=== PATIENT | female | born 1985 | race Two or more races ===

== ENCOUNTER 2025-01-25 17:39 | Emergency (ER) | payer SELFPAY ==
--- NOTE | 2025-01-25 19:35 | RAD REPORT ---
EXAM: CT Head Brain Wo Cont HISTORY: HEADACHE COMPARISON: None TECHNIQUE: Multiple contiguous axial images were obtained for a CT of the brain without contrast. Sag ittal and coronal reformats were performed. One or more of the following dose reduction techniques were used: Automated exposure control, adjus tment of the mA and kV according to patient size, and iterative reconstruction. Unless otherwise specified, incidental findings do not require dedicated imaging follow-up. FINDINGS: No evidence of hydrocephalus, intracranial hemorrhage, or extra-axial fluid collection. The brain is normal in morphology. The calvarium is intact. The visualized paranasal sinuses and mastoid air cells are essentially clear . IMPRESSION: No evidence of acute intracranial abnormality.
--- NOTE | 2025-01-25 20:09 | ER ---
Nurse's Notes [facility] Name: Andree Gonzales Age: 39 yrs Sex: Female : 1985 Arrival Date: 01/25/2025 Time: 17:39 Bed 6 Private MD: Diagnosis: Viral infection, unspecified;Headache Presentation: 01/25 18:01 Chief complaint: Patient states: HEADACHE, X 1 WEEK. 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 db SEEN BY PCP STATES TOOK AZYTHROMYCIN, AMOX/CLAUV, DIDN'T HELP. TOOK STEROID SHOT. STATES STILL HAS HEAD "PRESSURE". STATES PCP RECOMMENDED TO COME TO ED DUE TO SYMPTOMS NOT GETTING BETTER. Coronavirus screen: Client denies travel out of the [place] in the last 14 days. At this time, the client does not indicate any symptoms associated with coronavirus-19. Ebola Screen: Patient negative for fever greater than or equal to 101.5 degrees Fahrenheit, and additional compatible Ebola Virus Disease symptoms Patient denies exposure to infectious person. Patient denies travel to an Ebola-affected area in the 21 days before illness onset. No symptoms or risks identified at this time. Initial Sepsis Screen: Does the patient meet any 2 criteria? No. Patient's initial sepsis screen is negative. Does the patient have a suspected source of infection? No. Patient's initial sepsis screen is negative. Risk Assessment: Do you want to hurt yourself or someone else? Patient reports no desire to harm self or others. Onset of symptoms was January 19, 2025. 18:01 Method Of Arrival: Ambulatory db 18:08 Acuity: KEEGAN 3 db Triage Assessment: 18:01 Headache History: The patient has had previous headaches and this one is different than db previous episodes. General: Appears in no apparent distress. uncomfortable, Behavior is cooperative, crying. Pain: Complains of pain in head Pain. Neuro: Level of Consciousness is awake, alert, obeys commands, Oriented to person, place, time, situation. Respiratory: Airway is patent Respiratory effort is even, unlabored, Respiratory pattern is regular, symmetrical. 18:08 Pain: Pain began 7 DAYS. db 19:32 Pain: Also complains of nausea. km10 Historical: - Allergies: 18:08 Ceclor; db - PMHx: 18:08 SVT; Asthma; db - PSHx: 18:08 SINUS SURGERY; db - Immunization history:: Adult Immunizations unknown. - Infectious Disease History:: Denies. - Social history:: Smoking status: Patient denies any tobacco usage or history of. Screenin:28 [facility] ED Fall Risk Assessment (Adult) History of falling in the last 3 months, km10 including since admission No falls in past 3 months (0 pts) Confusion or Disorientation No (0 pts) Intoxicated or Sedated No (0 pts) Impaired Gait No (0 pts) Mobility Assist Device Used No (0 pt) Altered Elimination No (0 pt) Score/Fall Risk Level 0 - 2 = Low Risk. Abuse screen: Denies threats or abuse. Denies injuries from another. Nutritional screening: No deficits noted. Tuberculosis screening: No symptoms or risk factors identified. Assessment: 19:29 General: Appears in no apparent distress. Pain: Complains of pain in head Pain km10 currently is 6 out of 10 on a pain scale. Quality of pain is described as pressure, recent dx sinus infection and URI by pcp and seen at urgent care earlier today, got steroid and abx injection at . Aggravated by bright light. Neuro: Level of Consciousness is awake, alert, obeys commands, Oriented to person, place, time, situation. Cardiovascular: Capillary refill < 3 seconds. Respiratory: Airway is patent Respiratory effort is even, unlabored. GI: Reports nausea, Patient currently denies diarrhea, pain, vomiting. Vital Signs: 18:08 BP 136 / 100; Pulse 103; Resp 18; Temp 98.4; Pulse Ox 97% ; Weight 96.62 kg; Height 5 db ft. 5 in. ; 19:28 BP 143 / 87; Pulse 94; Resp 20; Temp 98.2(O); Pulse Ox 98% on R/A; km10 20:05 BP 143 / 98; Pulse 95; Resp 19; Pulse Ox 99% on R/A; kd3 18:08 Body Mass Index 35.44 (96.62 kg, 165.1 cm) db [place] Coma Score: 20:51 Eye Response: spontaneous(4). Motor Response: obeys commands(6). Verbal Response: kb oriented(5). Total: 15. ED Course: 17:52 Patient arrived in ED. mr 17:57 Rola Schultz FNP-C is PHCP. kb 17:57 Jevon Mirza DO is Attending Physician. kb 18:08 Arm band placed on. db 18:10 Triage completed. db 18:58 CT Head Brain wo Cont In Process Unspecified. EDMS 19:20 Diya Hanna, RN is Primary Nurse. kd3 19:29 Patient has correct armband on for positive identification. Provided Education on: PLAN km10 OF CARE. Client placed on continuous cardiac and pulse oximetry monitoring. NIBP monitoring applied. Door closed. Noise minimized. Lights dimmed. 20:18 No provider procedures requiring assistance completed. Patient did not have IV access kd3 during this emergency room visit. Administered Medications: 20:17 Drug: Ketorolac IM 30 mg IM once Route: IM; Site: right gluteus; kd3 Medication: 20:18 VIS not applicable for this client. kd3 Outcome: 20:09 Discharge ordered by MD. kb 20:18 Discharged to home ambulatory, kd3 20:18 Condition: stable 20:18 Discharge instructions given to patient, Instructed on discharge instructions, follow up and referral plans. medication usage, Demonstrated understanding of instructions, follow-up care, medications, Prescriptions given X 1, 20:23 Patient left the ED. kd3 Signatures: Dispatcher [employer] EDMS Rola Schultz, CALL PERSON-C CALL PERSON-Ckb Sheridan Juan, Reg Reg mr Diya Hanna, RN RN kd3 Traci Tillman, DARREN RN db Aleksandra Peoples, DARREN RN km10 Corrections: (The following items were deleted from the chart) 19:45 19:29 Pain: Complains of pain in head Pain currently is 7 out of 10 on a pain scale. km10 Quality of pain is described as pressure, recent dx sinus infection and URI by pcp and seen at urgent care earlier today, got steroid and abx injection at . Aggravated by bright light km10
--- NOTE | 2025-01-25 20:09 | EDPHYS ---
Physician Documentation [facility] Name: Andree Gonzales Age: 39 yrs Sex: Female : 1985 Arrival Date: 01/25/2025 Time: 17:39 Bed 6 Private MD: ED Physician Jevon Mirza HPI: 01/25 20:53 This 39 yrs old [place] Female presents to ER via Ambulatory with complaints of kb Headache, Ear Pain. 20:53 Patient is a 39-year-old female who presents for bilateral ear pain, headache, sore kb throat, cough that started 3 weeks ago. States the other members of her household were also sick but they have gotten better and her symptoms have persisted. Reports taking a course of Zithromax and Augmentin without relief. States that she has a lot of pressure in her head and it feels like there is water in there at times. Concerned that something is wrong. Has been seen by urgent care multiple times and called her doctor's office today but she is out of town until the so they recommended that she come to the ER for evaluation. Historical: - Allergies: 18:08 Ceclor; db - PMHx: 18:08 SVT; Asthma; db - PSHx: 18:08 SINUS SURGERY; db - Immunization history:: Adult Immunizations unknown. - Infectious Disease History:: Denies. - Social history:: Smoking status: Patient denies any tobacco usage or history of. ROS: 20:51 Constitutional: As per HPI kb Exam: 20:51 Constitutional: This is a well developed, well nourished patient who is awake, alert, kb and in no acute distress. Head/Face: Normocephalic, atraumatic. ENT: Moist Mucous membranes Cardiovascular: Regular rate Respiratory: Respirations even and unlabored. No increased work of breathing. Talking in full sentences Skin: Warm, dry with normal turgor. Normal color. MS/ Extremity: Pulses equal, no cyanosis. Neurovascular intact. Full, normal range of motion. Neuro: Awake and alert, GCS 15, oriented to person, place, time, and situation. Vital Signs: 18:08 BP 136 / 100; Pulse 103; Resp 18; Temp 98.4; Pulse Ox 97% ; Weight 96.62 kg; Height 5 db ft. 5 in. ; 19:28 BP 143 / 87; Pulse 94; Resp 20; Temp 98.2(O); Pulse Ox 98% on R/A; km10 20:05 BP 143 / 98; Pulse 95; Resp 19; Pulse Ox 99% on R/A; kd3 18:08 Body Mass Index 35.44 (96.62 kg, 165.1 cm) db [place] Coma Score: 20:51 Eye Response: spontaneous(4). Motor Response: obeys commands(6). Verbal Response: kb oriented(5). Total: 15. MDM: 17:57 Medical Screening Exam initiated kb 20:51 Differential diagnosis: Viral illness, otitis media, otitis externa, sinusitis, kb hydrocephalus, mastoiditis. Data reviewed: vital signs, nurses notes. I considered the following discharge prescriptions or medication management in the emergency department I discussed and recommended Over The Counter medications, Antibiotics: At this time antibiotics are not recommended. Test considered but Not performed: Labs: CBC, CMP, mono considered but patient was tested for mono today which was negative. Patient nontoxic in appearance.. X-ray: Chest x-ray considered but lungs are clear bilaterally, patient had recent chest x-ray that was clear.. Counseling: I had a detailed discussion with the patient and/or guardian regarding the historical points, exam findings, and any diagnostic results supporting the discharge/admit diagnosis, radiology results, the need for outpatient follow up, a family practitioner, to return to the emergency department if symptoms worsen or persist or if there are any questions or concerns that arise at home. ED course: Patient was given doxycycline and Ciprodex from urgent care today that she will take at home.. 01/25 18:06 Order name: CT Head Brain wo Cont; Complete Time: 19:38 kb Administered Medications: 20:17 Drug: Ketorolac IM 30 mg IM once Route: IM; Site: right gluteus; kd3 Disposition Summary: 01/25/25 20:09 Discharge Ordered Notes: Location: Home kb Condition: Stable kb Diagnosis - Viral infection, unspecified kb - Headache kb Followup: kb - With: Emergency Department - When: As needed - Reason: Worsening of condition Followup: kb - With: Private Physician - When: 2 - 3 days - Reason: Recheck today's complaints, Continuance of care, Re-evaluation by your physician Discharge Instructions: - Discharge Summary Sheet kb - Viral Illness, Adult kb Forms: - Work release form kb - Medication Reconciliation Form kb - Antibiotic Education kb - Prescription Opioid Use kb - Patient Portal Instructions kb - Leadership Thank You Letter kb Prescriptions: - Prednisone 20 mg Oral Tablet - take 1 tablet ORAL route once daily for 5 days; 5 tablet; Refills: 0, Product kb Selection Permitted Signatures: Dispatcher [employer] EDRola Velasquez, Diya Ferguson RN RN kd3 Traci Tillman RN RN db
[2025-01-25] MEDS ORDERED: KETOROLAC 30 MG/ML INJ ONE (20:10)
[2025-01-25 20:56] VITALS: TEMP 98.2
[2025-01-25 20:58] VITALS: BP 143/98; O2SAT 99
--- OUTSIDE RECORDS SUMMARY | 2025-01-25 21:32 | XMS REPORT | Clinical Summary ---
Author Name Unknown Organization [facility] Address [facility] [place] [address] Care Team Providers Care Hand Clipper Name Role Phone Radha Chaparro MD Unavailable [phone] Jordana Mosher MD Primary Care Provider [phone] Allergies Active Allergy Reactions Criticality Noted Date Comments Cefaclor Anaphylaxis,Other (See Comments) High 02/2024 Penicillins Other (See Comments) High 07/01/2024 Medications No known medications Encounters Date Type Department Care Team Description 07/08/2024 Telephone [facility] [address] [place] [address], 9th [place] [address] Yen Stoll APRN 07/06/2024 2:15 PM CDT Ancillary Procedure [address] [address] Yen Stoll APRN Abnormal finding on diagnostic imaging of other abdominal region including retroperitoneum 07/06/2024 Travel 07/01/2024 11:11 AM CDT - 07/01/2024 11:59 PM CDT Hospital [facility] [address] [place] [address], 2nd [place] [address] Yen Stoll APRN Abnormal finding on diagnostic imaging of other abdominal region including retroperitoneum Discharge Disposition: Home 07/01/2024 11:11 AM CDT - 07/01/2024 11:59 PM CDT Hospital Encounter [facility] [address] [place] [id number] Yen Stoll APRN Abnormal finding on diagnostic imaging of other abdominal region including retroperitoneum Discharge Disposition: Home 07/01/2024 9:00 AM CDT Office Visit [facility] [address] [place] [address], 9th [place] [address] Jordana Mosher MD Abnormal finding on diagnostic imaging of other abdominal region including retroperitoneum (Primary Dx) 07/01/2024 Travel 06/29/2024 8:20 PM CDT Ancillary Procedure [facility] [address] [place] [id number] Jordana Mosher MD Cancer 06/29/2024 4:30 PM CDT NPR [facility] PATIENT ACCESS Jordana Mosher MD 06/28/2024 Orders Only [facility] [address] [place] [address], 9th [place] [address] Jah Beltrán APRN 06/28/2024 Orders Only [facility] [address] [place] [address], 9th [place] [address] Jah Beltrán APRN Abnormal finding on diagnostic imaging of other abdominal region including retroperitoneum (Primary Dx) 06/24/2024 Telephone [facility] PATIENT ACCESS Yoana Maher RN after 01/26/2024 Surgical History Surgery Date Site/Laterality Comments TONSILLECTOMY 09/08/1992 - 09/07/1993 SINUS SURGERY 09/08/2013 - 09/07/2014 Medical History Medical History Date Comments Supraventricular tachycardia 2022 Social History Tobacco Use Types Packs/Day Years Used Date Smoking Tobacco: Never Passive Smoke Exposure: Past Smokeless Tobacco: Never Tobacco Cessation:Counseling Given: No Comments:Exhusband smoked Alcohol Use Standard Drinks/Week Comments Not Currently 0 (1 standard drink = 0.6 oz pur e alcohol) AUDIT-C Answer Date Recorded Q1: How often do you have a drink containing alcohol? Never 07/01/2024 Q2: How many drinks containi ng alcohol do you have on a typical day when you are drinking? Patient does not drink Q3: How often do you have si x or more drinks on one occasion? Never 07/01/2024 Comments Unknown Sex and Gender Information Value Date Recorded Sex Assigned at Not on file Legal Sex Female 9:38 AM CDT Gender Identity Not on file Sexual Orientation Not on file Obstetrics History Last Filed Vital Signs Vital Sign Reading Time Taken Comments Blood Pressure 140/81 07/01/2024 9:14 AM CDT Pulse 64 07/01/2024 9:14 AM CDT Temperature 37.1 °C (98.8 °F) 07/01/2024 9:14 AM CD T Respiratory Rate 16 07/01/2024 9:14 AM CDT Oxygen Saturation 96% 07/01/2024 9:14 AM CDT Inhaled Oxygen Concentration - - Weight 100.1 kg (220 lb 10.9 oz) 07/06/2024 2:29 PM CDT Height 163 cm (5' 4.17") 07/01/2024 9:14 AM CDT Body Mass Index 37.68 07/01/2024 9:14 AM CDT Plan of Treatment Health Maintenance Due Date Last Done Comments COVID-19 Vaccine ( - 2023-2 5 season) 2024 Influenza Vaccine (Season Ended) 2025 Pneumococcal Vaccine Aged Out No long er eligible based on patient's age to complete this topic Procedures Procedure Name Priority Date/Time Associated Diagnosis Comments MRI PELVIS W WO CONTRAST Routine 07/06/2024 5:19 PM CDT Abnormal finding on diagnostic imaging of other abdominal region including retroperitoneum MRI ABDOMEN W WO CONTRAST Routine 07/06/2024 5:19 PM CDT Abnormal finding on diagnostic imaging of other abdominal region including retroperitoneum .CBC Routine 07/01/2024 11:24 AM CDT Abnormal finding on diagnostic imaging of other abdominal region including retroperitoneum CARCINOEMBRYONIC ANTIGEN Routine 07/01/2024 11:24 AM CDT Abnormal finding on diagnostic imaging of other abdominal region including retroperitoneum CANCER ANTIGEN 125 Routine 07/01/2024 11 :24 AM CDT Abnormal finding on diagnostic imaging of other abdominal region including retroperitoneum CARBOHYDRATE ANTIGEN 19-9 Routine 07/01/2024 11:24 AM CDT Abnormal finding on diagnostic imaging of other abdominal region including retroperitoneum BETA 2 MICROGLOBULIN Routine 07/01/2024 11:24 AM CDT Abnormal finding on diagnostic imaging of other abdominal region including retroperitoneum ALPHA FETOPROTEIN TUMOR MARKER Routine 07/01/2024 11:24 AM CDT Abnormal finding on diagnostic imaging of other abdominal region including retroperitoneum HEPATITIS B CORE ANTIBODY Routine 07/01/2024 11:24 AM CDT Abnormal finding on diagnostic imaging of other abdominal region including retroperitoneum HEPATIC FUNCTION PANEL Routine 11:24 AM CDT Abnormal finding on diagnostic imaging of other abdominal region including retroperitoneum HEPATITIS C VIRUS ANTIBODY Routine 07/01/2024 11:24 AM CDT Abnormal finding on diagnostic imaging of other abdominal region including retroperitoneum APTT Routine 07/01/2024 11:24 AM CDT Abnormal finding on diagnostic imaging of other abdominal region including retroperitoneum COMPLETE BLOOD COUNT W/ DIFFERENTIAL Routine 07/01/2024 11:24 AM CDT Abnormal finding on diagnostic imaging of other abdominal region including retroperitoneum PROTHROMBIN TIME Routine 07/01/2024 11:2 4 AM CDT Abnormal finding on diagnostic imaging of other abdominal region including retroperitoneum LACTATE DEHYDROGENASE Routine 07/01/2024 11:24 AM CDT Abnormal finding on diagnostic imaging of other abdominal region including retroperitoneum MAGNESIUM LEVEL Routine 07/01/2024 11:24 AM CDT Abnormal finding on diagnostic imaging of other abdominal region including retroperitoneum PHOSPHORUS LEVEL Routine 07/01/2024 11:2 4 AM CDT Abnormal finding on diagnostic imaging of other abdominal region including retroperitoneum CALCIUM LEVEL Routine 07/01/2024 11:24 AM CDT Abnormal finding on diagnostic imaging of other abdominal region including retroperitoneum GLUCOSE, RANDOM Routine 07/01/2024 11:24 AM CDT Abnormal finding on diagnostic imaging of other abdominal region including retroperitoneum CREATININE Routine 07/01/2024 11:24 AM CDT Abnormal finding on diagnostic imaging of other abdominal region including retroperitoneum BLOOD UREA NITROGEN Routine 07/01/2024 1 1:24 AM CDT Abnormal finding on diagnostic imaging of other abdominal region including retroperitoneum ELECTROLYTE PANEL Routine 07/01/2024 11: 24 AM CDT Abnormal finding on diagnostic imaging of other abdominal region including retroperitoneum EKG, 12-LEAD (SCHEDULED) Routine 07/01/2024 Abnormal finding on diagnostic imaging of other abdominal region including retroperitoneum OSI CT ABDOMEN AND PELVIS Routine 06/23/2024 8:56 PM CDT Cancer after 01/26/2024 Results * MRI Pelvis with and without Contrast (07/06/2024 5:19 PM CDT) Anatomical Region Laterality Modality Pelvis Magnetic Resonan ce 07/06/2024 5:43 PM CDT Impressions 07/06/2024 6:14 PM CDT Impression: 1. Diffuse hepatic steatosis. 2. Small volume of gallbladder sludge. 3. No evidence of liver or pancreatic focal lesion. The liver hyperenhancement on recent CT is most likely an area of focal fatty sparing. ACTIONABLE ITEMS/RECOMMENDATIONS*: None. *An Actionable Finding is a finding that may be unrelated to the original reason for imaging but potentially actionable, meaning further investigation may be necessary. The Actionable Findings Vigilance Unit (AFVU) assists medical providers with responding to additional radiologic findings that are unexpected and potentially actionable. Narrative 07/06/2024 6:14 PM CDT Examination: MRI ABDOMEN W WO CONTRAST, MRI PELVIS W WO CONTRAST on 07/06/2024 5:19 PM. Clinical History: 39-year-old patient with history of abnormal finding on outside imaging. Indication: Suspected findings on the liver: 13 mm enhancing lesion in the right lobe near the gallbladder bed, and pancreatic head lesion. Comparison: Outside CT of the abdomen and pelvis on 06/23/2024. Technique: Multiplanar multisequence imaging of the abdomen and pelvis with and without intravenous contrast. FINDINGS: Lower chest: Within the limitations of MRI for evaluation of lung parenchyma, no evidence of suspicious pulmonary nodules, consolidations or effusions. The heart is normal in size. No pericardial effusion. Hepatobiliary: The liver is homogeneous in signal intensity with diffuse signal dropout on T1 out of phase suggestive of diffuse hepatic steatosis. No intra or extrahepatic biliary ductal dilatation. The gallbladder contains layering debris compatible with sludge in the appropriate clinical setting. Spleen: The spleen is normal in signal intensity without focal pathology. Pancreas: The pancreas is homogeneous in signal intensity without ductal dilatation. No focal enhancing lesion within the pancreatic head. There is an area of focal signal dropout on T1 out of phase series 6, image 35 compatible with peripancreatic fatty infiltration Kidneys: The kidneys are symmetric and normal. No hydronephrosis or solid mass. Adrenals: The adrenal glands are symmetric and normal GI Tract: No bowel obstruction. No focal bowel mass in the rectum is normal. The appendix is not well visualized. Bladder: The urinary bladder is distended without evidence of papillary or sessile lesions. Distal ureters are normal. Femur urethra is unremarkable Reproductive Organs: The uterus is anteverted and anteflexed with normal appearing endometrium. The ovaries are normal with evidence of bilateral physiologic follicles, the left best seen on series 16, image 26, and right ovary seen on image 33. No cervical mass present. There is an endovaginal tampon present. Peritoneum/Retroperitoneum: No peritoneal nodularity or ascites Lymph Nodes: No evidence of lymphadenopathy in the abdomen or pelvis Vessels: Vascular structures are patent. Musculoskeletal: There is a small fat-containing umbilical hernia best seen on series 17, image 8. No evidence of abnormal bone marrow signal Procedure Note Sebastian Matthews MD - 07/06/2024 Examination: MRI ABDOMEN W WO CONTRAST, MRI PELVIS W WO CONTRAST on07/06/2024 5:19 PM. Clinical History: 39-year-old patient with history of abnormal finding onoutside imaging. Indication: Suspected findings on the liver: 13 mm enhancing lesion in theright lobe near the gallbladder bed, and pancreatic head lesion. Comparison: Outside CT of the abdomen and pelvis on 06/23/2024. Technique: Multiplanar multisequence imaging of the abdomen and pelviswith and without intravenous contrast. FINDINGS: Lower chest: Within the limitations of MRI for evaluation of lungparenchyma, no evidence of suspicious pulmonary nodules, consolidations oreffusions. The heart is normal in size. No pericardial effusion. Hepatobiliary: The liver is homogeneous in signal intensity with diffusesignal dropout on T1 out of phase suggestive of diffuse hepatic steatosis.No intra or extrahepatic biliary ductal dilatation. The gallbladder contains layering debris compatible with sludge in theappropriate clinical setting. Spleen: The spleen is normal in signal intensity without focalpathology. Pancreas: The pancreas is homogeneous in signal intensity without ductaldilatation. No focal enhancing lesion within the pancreatic head. There isan area of focal signal dropout on T1 out of phase series 6, image 35compatible with peripancreatic fatty infiltration Kidneys: The kidneys are symmetric and normal. No hydronephrosis or solidmass. Adrenals: The adrenal glands are symmetric and normal GI Tract: No bowel obstruction. No focal bowel mass in the rectum isnormal. The appendix is not well visualized. Bladder: The urinary bladder is distended without evidence of papillary orsessile lesions. Distal ureters are normal. Femur urethra isunremarkable Reproductive Organs: The uterus is anteverted and anteflexed with normalappearing endometrium. The ovaries are normal with evidence of bilateralphysiologic follicles, the left best seen on series 16, image 26, andright ovary seen on image 33. No cervical mass present. There is an endovaginal tampon present. Peritoneum/Retroperitoneum: No peritoneal nodularity or ascites Lymph Nodes: No evidence of lymphadenopathy in the abdomen or pelvis Vessels: Vascular structures are patent. Musculoskeletal: There is a small fat-containing umbilical hernia bestseen on series 17, image 8. No evidence of abnormal bone marrow signal IMPRESSION: Impression: 1. Diffuse hepatic steatosis. 2. Small volume of gallbladder sludge. 3. No evidence of liver or pancreatic focal lesion. The liverhyperenhancement on recent CT is most likely an area of focal fattysparing. ACTIONABLE ITEMS/RECOMMENDATIONS*: None. *An Actionable Finding is a finding that may be unrelated to the originalreason for imaging but potentially actionable, meaning furtherinvestigation may be necessary. The Actionable Findings Vigilance Unit(AFVU) assists medical providers with responding to additional radiologicfindings that are unexpected and potentially actionable. Yen Stoll ACTUARIAL ANALYST [facility] MRI ORDERABLES Final R esult * MRI Abdomen with and without Contrast (07/06/2024 5:19 PM CDT) Anatomical Region Laterality Modality Abdomen Magnetic Resonan ce 07/06/2024 5:43 PM CDT Impressions 07/06/2024 6:14 PM CDT Impression: 1. Diffuse hepatic steatosis. 2. Small volume of gallbladder sludge. 3. No evidence of liver or pancreatic focal lesion. The liver hyperenhancement on recent CT is most likely an area of focal fatty sparing. ACTIONABLE ITEMS/RECOMMENDATIONS*: None. *An Actionable Finding is a finding that may be unrelated to the original reason for imaging but potentially actionable, meaning further investigation may be necessary. The Actionable Findings Vigilance Unit (AFVU) assists medical providers with responding to additional radiologic findings that are unexpected and potentially actionable. Narrative 07/06/2024 6:14 PM CDT Examination: MRI ABDOMEN W WO CONTRAST, MRI PELVIS W WO CONTRAST on 07/06/2024 5:19 PM. Clinical History: 39-year-old patient with history of abnormal finding on outside imaging. Indication: Suspected findings on the liver: 13 mm enhancing lesion in the right lobe near the gallbladder bed, and pancreatic head lesion. Comparison: Outside CT of the abdomen and pelvis on 06/23/2024. Technique: Multiplanar multisequence imaging of the abdomen and pelvis with and without intravenous contrast. FINDINGS: Lower chest: Within the limitations of MRI for evaluation of lung parenchyma, no evidence of suspicious pulmonary nodules, consolidations or effusions. The heart is normal in size. No pericardial effusion. Hepatobiliary: The liver is homogeneous in signal intensity with diffuse signal dropout on T1 out of phase suggestive of diffuse hepatic steatosis. No intra or extrahepatic biliary ductal dilatation. The gallbladder contains layering debris compatible with sludge in the appropriate clinical setting. Spleen: The spleen is normal in signal intensity without focal pathology. Pancreas: The pancreas is homogeneous in signal intensity without ductal dilatation. No focal enhancing lesion within the pancreatic head. There is an area of focal signal dropout on T1 out of phase series 6, image 35 compatible with peripancreatic fatty infiltration Kidneys: The kidneys are symmetric and normal. No hydronephrosis or solid mass. Adrenals: The adrenal glands are symmetric and normal GI Tract: No bowel obstruction. No focal bowel mass in the rectum is normal. The appendix is not well visualized. Bladder: The urinary bladder is distended without evidence of papillary or sessile lesions. Distal ureters are normal. Femur urethra is unremarkable Reproductive Organs: The uterus is anteverted and anteflexed with normal appearing endometrium. The ovaries are normal with evidence of bilateral physiologic follicles, the left best seen on series 16, image 26, and right ovary seen on image 33. No cervical mass present. There is an endovaginal tampon present. Peritoneum/Retroperitoneum: No peritoneal nodularity or ascites Lymph Nodes: No evidence of lymphadenopathy in the abdomen or pelvis Vessels: Vascular structures are patent. Musculoskeletal: There is a small fat-containing umbilical hernia best seen on series 17, image 8. No evidence of abnormal bone marrow signal Procedure Note Sebastian Matthews MD - 07/06/2024 Examination: MRI ABDOMEN W WO CONTRAST, MRI PELVIS W WO CONTRAST on07/06/2024 5:19 PM. Clinical History: 39-year-old patient with history of abnormal finding onoutside imaging. Indication: Suspected findings on the liver: 13 mm enhancing lesion in theright lobe near the gallbladder bed, and pancreatic head lesion. Comparison: Outside CT of the abdomen and pelvis on 06/23/2024. Technique: Multiplanar multisequence imaging of the abdomen and pelviswith and without intravenous contrast. FINDINGS: Lower chest: Within the limitations of MRI for evaluation of lungparenchyma, no evidence of suspicious pulmonary nodules, consolidations oreffusions. The heart is normal in size. No pericardial effusion. Hepatobiliary: The liver is homogeneous in signal intensity with diffusesignal dropout on T1 out of phase suggestive of diffuse hepatic steatosis.No intra or extrahepatic biliary ductal dilatation. The gallbladder contains layering debris compatible with sludge in theappropriate clinical setting. Spleen: The spleen is normal in signal intensity without focalpathology. Pancreas: The pancreas is homogeneous in signal intensity without ductaldilatation. No focal enhancing lesion within the pancreatic head. There isan area of focal signal dropout on T1 out of phase series 6, image 35compatible with peripancreatic fatty infiltration Kidneys: The kidneys are symmetric and normal. No hydronephrosis or solidmass. Adrenals: The adrenal glands are symmetric and normal GI Tract: No bowel obstruction. No focal bowel mass in the rectum isnormal. The appendix is not well visualized. Bladder: The urinary bladder is distended without evidence of papillary orsessile lesions. Distal ureters are normal. Femur urethra isunremarkable Reproductive Organs: The uterus is anteverted and anteflexed with normalappearing endometrium. The ovaries are normal with evidence of bilateralphysiologic follicles, the left best seen on series 16, image 26, andright ovary seen on image 33. No cervical mass present. There is an endovaginal tampon present. Peritoneum/Retroperitoneum: No peritoneal nodularity or ascites Lymph Nodes: No evidence of lymphadenopathy in the abdomen or pelvis Vessels: Vascular structures are patent. Musculoskeletal: There is a small fat-containing umbilical hernia bestseen on series 17, image 8. No evidence of abnormal bone marrow signal IMPRESSION: Impression: 1. Diffuse hepatic steatosis. 2. Small volume of gallbladder sludge. 3. No evidence of liver or pancreatic focal lesion. The liverhyperenhancement on recent CT is most likely an area of focal fattysparing. ACTIONABLE ITEMS/RECOMMENDATIONS*: None. *An Actionable Finding is a finding that may be unrelated to the originalreason for imaging but potentially actionable, meaning furtherinvestigation may be necessary. The Actionable Findings Vigilance Unit(AFVU) assists medical providers with responding to additional radiologicfindings that are unexpected and potentially actionable. Jah Beltrán APRN IMG MRI ORDERABLES Final R esult * Glucose, Random (07/01/2024 11:24 AM CDT) Glucose Random 101 70 - 199 mg/dL 07/01/2024 12:14 PM CDT [facility] Blood Peripheral blood specimen / Unknown Venipuncture / Unknown 07/01/2024 11:24 AM CDT 07/01/2024 11:28 AM CDT Narrative [facility] - 07/01/2024 12:14 PM CDT Effective 04/03/16, the glucose reference intervals have been updated based on [place] [employer] guidelines (Standards of Medical Care in Diabetes 2016. Diabetes Care 2016; 39: S13-S22). Fasting blood glucose: Normal: 70-99 mg/dL Impaired fasting glucose (increased risk for diabetes or pre-diabetes): 100-125 mg/dL Diabetes mellitus: >/=126 mg/dL Random blood glucose: Normal: 70-199 mg/dL Note: Random glucose >100 mg/dL is associated with increased risk for diabetes Yen Stoll ACTUARIAL ANALYST LAB BLOOD ORDERABLES Final Result [facility] Unless otherwise noted, all lab tests performed by: Division of Pathology and Laboratory Medicine [address] [place] [id number] * .CBC (07/01/2024 11:24 AM CDT) Pathologist [facility] White Blood Cell 8.3 4.1 - 10.5 K/uL 07/01/2024 11:34 AM CDT [facility] Red Blood Cell 4.47 3.99 - 5.46 M/uL 07/01/2024 11:34 AM CDT [facility] Hemoglobin 13.0 12.2 - 15.3 g/dL 07/01/2024 11:34 AM CDT [facility] Hematocrit 38.0 36.4 - 46.8 % 07/01/2024 11:34 AM CDT [facility] Mean Cell Volume 85 82 - 99 fL 07/01/20 11:34 AM CDT [facility] Mean Cell Hemoglobin 29.1 26.6 - 33.2 pg 07/01/2024 11:34 AM CDT [facility] Mean Cell Hemoglobin Concentration 34.2 31.1 - 35.2 g/dL 07/01/2024 11:34 AM CDT [facility] RDW-SD 38.6 37.5 - 49.7 fL 07/01/2024 11:34 AM CDT [facility] Red Cell Diameter Width 12.6 11.6 - 15.5 % 07/01/2024 11:34 AM CDT [facility] Platelet 209 160 - 397 K/uL 07/01/2024 11:34 AM CDT [facility] Mean Platelet Volume 10.9 9.1 - 12.6 fL 07/01/2024 11:34 AM CDT [facility] INRBC 0.0 0.0 - 0.1 /100 WBC 07/01/2024 11:34 AM CDT [facility] Comment: The INRBC (instrument NRBC) value reflects the enumeration of nucleated red blood cells contained in a 200uL sample of whole blood analyzed by the instrument. This value may differ from the NRBC value reported in a manual differential, which is based on a 100 cell differential. Neutrophil % 59.3 43.2 - 72.7 % 07/01/2024 11:34 AM CDT [facility] Lymphocyte % 31.2 16.8 - 46.2 % 07/01/2024 11:34 AM T [facility] Monocyte % 6.9 5.1 - 12.5 % 07/01/2024 11:34 AM CDT [facility] Eosinophil % 1.9 0.4 - 6.3 % 07/01/2024 11:34 AM T [facility] Basophil % 0.5 0.2 - 1.4 % 07/01/2024 11:34 AM T [facility] IGRE % 0.2 0.1 - 1.5 % 07/01/2024 11:34 AM T [facility] Comment:The IGRE% includes M etamyelocytes, Myelocytes and Promyelocytes. Neutrophil Abs 4.91 1.95 - 7.25 K/uL 07/01/2024 11:34 AM CDT [facility] Lymphocyte Abs 2.59 1.01 - 3.24 K/uL 07/01/2024 11:34 AM CDT [facility] Monocyte Abs 0.57 0.24 - 0.85 K/uL 07/01/2024 11:34 AM CDT [facility] Eosinophil Abs 0.16 0.02 - 0.50 K/uL 07/01/2024 11:34 AM CDT [facility] [facility] Basophil Abs 0.04 0.02 - 0.09 K/uL 07/01/2024 11:34 AM CDT [facility] IG Abs 0.02 0.01 - 0.12 K/uL 07/01/2024 11:34 AM CDT [facility] Blood Peripheral blood specimen / Unknown Venipuncture / Unknown 07/01/2024 11:24 AM CDT 07/01/2024 11:28 AM CDT Yen Stoll APRN LAB BLOOD ORDERABLES Final Result Performing Organization Address City/[facility] Co de Phone Number [facility] Unless otherwise noted, all lab tests performed by: Division of Pathology and Laboratory Medicine [address] [place] [phone] * Hepatitis C Virus Antibody (07/01/2024 11:24 AM CDT) [facility] HCVAb. Non Reactive Non Reactive 07/01/2024 12:43 PM CDT [facility] Blood Peripheral blood specimen / Unknown Venipuncture / Unknown 07/01/2024 11:24 AM CDT 07/01/2024 11:27 AM CDT Narrative [facility] - 07/01/2024 12:43 PM CDT Antibody detection in the immunocompromised and immunosuppressed population may be delayed or absent entirely. Therefore serial testing, correlation with other clinical findings, and supplemental testing (if available) should be taken into consideration when interpreting the results. Yen Stoll APRN LAB BLOOD ORDERABLES Final Result Performing Organization Address City/[facility]/ZIP Co de Phone Number [facility] Unless otherwise noted, all lab tests performed by: Division of Pathology and Laboratory Medicine [address] [place] [phone] * Hepatitis B Total Ig Core Ab (SCREENING) (anti-HBc total Ig; HBcAb total Ig) (07/01/2024 11:24 AM CDT) [facility] HBcAb. Non Reactive Non Reactive 07/01/2024 12:43 PM CDT [facility] Blood Peripheral blood specimen / Unknown Venipuncture / Unknown 07/01/2024 11:24 AM CDT 07/01/2024 11:27 AM CDT Yen Stoll LENNOX LAB BLOOD ORDERABLES Final Result [facility] Unless otherwise noted, all lab tests performed by: Division of Pathology and Laboratory Medicine [address] [place] [phone] * Hepatic Function Panel (07/01/2024 11:24 AM CDT) Bilirubin Total 0.5 0.0 - 1.2 mg/dL 07/01/2024 12:14 PM CDT [facility] Comment:Indocyanine Green (I CG) may cause falsely elevated bilirubin results. Total and direct bilirubin must not be measured from samples containing indocyanine green. False elevation of total bilirubin can be seen in patients with IgG concentrations above 28 g/L. Bilirubin Direct <0.2 0.0 - 0.3 mg/dL 07/01/2024 12:14 PM CDT [facility] Comment:Indocyanine Green (I CG) may cause falsely elevated bilirubin results. Total and direct bilirubin must not be measured from samples containing indocyanine green. Bilirubin Indirect 2023 12:14 PM CDT [facility] Comment:Unable to calculate Indirect Bilirubin result due to some parameters are outside reportable range Tot Protein 7.5 6.4 - 8.3 gm/dL 07/01/2024 12:14 PM CDT [facility] Alkaline Phosphatase 65 35 - 104 U/L 07/01/2024 12:14 PM CDT [facility] Albumin Level 4.5 3.5 - 5.2 gm/dL 07/01/2024 12:14 PM CDT [facility] AST 13 <=32 U/L 07/01/2024 12:14 PM CDT [facility] ALT 12 <=33 U/L 07/01/2024 12:14 PM CDT [facility] Blood Peripheral blood specimen / Unknown Venipuncture / Unknown 07/01/2024 11:24 AM CDT 07/01/2024 11:28 AM CDT Yen Santoso ACTUARIAL ANALYST LAB BLOOD ORDERABLES Final Result [facility] Unless otherwise noted, all lab tests performed by: Division of Pathology and Laboratory Medicine [address] [place] [phone] * aPTT (07/01/2024 11:24 AM CDT) [facility] Activated PTT 26.7 24.8 - 35.6 second(s) 07/01/2024 11:59 AM CDT [facility] Blood Peripheral blood specimen / Unknown Venipuncture / Unknown 07/01/2024 11:24 AM CDT 07/01/2024 11:26 AM CDT Yen Santoso ACTUARIAL ANALYST LAB BLOOD ORDERABLES Final Result Performing Organization Address [facility] Co de Phone Number [facility] Unless otherwise noted, all lab tests performed by: Division of Pathology and Laboratory Medicine [address] [place] [phone] * AFP (07/01/2024 11:24 AM CDT) [facility] Alpha Fetoprotein (AFP) Tumor Marker <2.7 <=8.3 ng/mL 07/01/2024 12:17 PM CDT [facility] Blood Peripheral blood specimen / Unknown Venipuncture / Unknown 07/01/2024 11:24 AM CDT 07/01/2024 11:28 AM CDT Narrative [facility] - 07/01/2024 12:17 PM CDT Results greater than 45,875.00 ng/mL may not be reliable due to matrix effect with extended dilution as it exceeds the alkylation operator's recommended limit. Caution should be exercised when interpreting such values and done in conjunction with clinical context. This test is measured by electrochemiluminescence immunoassay on [employer] immunoassay analyzers. Results obtained in different methods are not interchangeable. Yen Santoso ACTUARIAL ANALYST LAB BLOOD ORDERABLES Final Result [facility] Unless otherwise noted, all lab tests performed by: Division of Pathology and Laboratory Medicine [address] [place] [phone] * CA 19-9 (07/01/2024 11:24 AM CDT) CA 19-9 15.5 <=35.0 U/mL 07/01/2024 1:11 PM CDT [facility] Blood Peripheral blood specimen / Unknown Venipuncture / Unknown 07/01/2024 11:24 AM CDT 07/01/2024 11:28 AM CDT Narrative [facility] - 07/01/2024 1:11 PM CDT Results greater than 9500 U/mL may not be reliable due to matrix effect with extended dilution as it exceeds the alkylation operator's recommended limit. Caution should be exercised when interpreting such values and done in conjunction with clinical context. This test is measured by electrochemiluminescence immunoassay on [employer] immunoassay analyzers. Results obtained in different methods are not interchangeable. Yen Stoll APRN LAB BLOOD ORDERABLES Final Result Performing Organization Address City/[facility]/ZIP Co de Phone Number [facility] Unless otherwise noted, all lab tests performed by: Division of Pathology and Laboratory Medicine [address] [place] [phone] * Prothrombin Time with INR (07/01/2024 11:24 AM CDT) Pathologist [facility] Prothrombin Time 13.1 12.2 - 14.4 second(s) 07/01/2024 11:59 AM CDT [facility] International Normalization Ratio 0.99 0.91 - 1.10 07/01/2024 11:59 AM CDT [facility] Blood Peripheral blood specimen / Unknown Venipuncture / Unknown 07/01/2024 11:24 AM CDT 07/01/2024 11:26 AM CDT Yen Stoll ACTUARIAL ANALYST LAB BLOOD ORDERABLES Final Result [facility] Unless otherwise noted, all lab tests performed by: Division of Pathology and Laboratory Medicine [address] [place] [id number] * CA 125 (07/01/2024 11:24 AM CDT) Pathologist [facility] Cancer Antigen 125 8.3 <=38.0 U/mL 07/01/2024 1:11 PM CDT [facility] Blood Peripheral blood specimen / Unknown Venipuncture / Unknown 07/01/2024 11:24 AM CDT 07/01/2024 11:28 AM CDT Narrative [facility]) - 07/01/2024 1:11 PM CDT Results greater than 11,500.0 U/mL may not be reliable due to matrix effect with extended dilution as it exceeds the alkylation operator's recommended limit. Caution should be exercised when interpreting such values and done in conjunction with clinical context. This test is measured by electrochemiluminescence immunoassay on [employer] immunoassay analyzers. Results obtained in different methods are not interchangeable. Reference intervals are not available for male patients. Results should be interpreted in conjunction with clinical context. Yen Stoll APRN LAB BLOOD ORDERABLES Final Result [facility] Unless otherwise noted, all lab tests performed by: Division of Pathology and Laboratory Medicine [address] [place] [phone] * BUN (07/01/2024 11:24 AM CDT) Pathologist [facility] BUN 7 6 - 23 mg/dL 07/01/2024 12:14 PM CDT [facility] Blood Peripheral blood specimen / Unknown Venipuncture / Unknown 07/01/2024 11:24 AM CDT 07/01/2024 11:28 AM CDT Yen Stoll APRN LAB BLOOD ORDERABLES Final Result [facility] Unless otherwise noted, all lab tests performed by: Division of Pathology and Laboratory Medicine [address] [place] [phone] * Phosphorus Level (07/01/2024 11:24 AM CDT) Phosphorus Level 2.6 2.5 - 4.5 mg/dL 07/01/2024 12:14 PM CDT [facility] Blood Peripheral blood specimen / Unknown Venipuncture / Unknown 07/01/2024 11:24 AM CDT 07/01/2024 11:28 AM CDT Yen Stoll APRN LAB BLOOD ORDERABLES Final Result [facility] Unless otherwise noted, all lab tests performed by: Division of Pathology and Laboratory Medicine [address] [place] [phone] * Magnesium Level (07/01/2024 11:24 AM CDT) Pathologist [facility] Magnesium Level 2.1 1.6 - 2.6 mg/dL 07/01/2024 12:14 PM CDT [facility] Blood Peripheral blood specimen / Unknown Venipuncture / Unknown 07/01/2024 11:24 AM CDT 07/01/2024 11:28 AM CDT Yen Stoll APRN LAB BLOOD ORDERABLES Final Result [facility] Unless otherwise noted, all lab tests performed by: Division of Pathology and Laboratory Medicine [address] [place] [id number] * LDH (07/01/2024 11:24 AM CDT) LDH 175 135 - 214 U/L 07/01/2024 12:09 PM CDT [facility] Blood Peripheral blood specimen / Unknown Venipuncture / Unknown 07/01/2024 11:24 AM CDT 07/01/2024 11:28 AM CDT Narrative [facility] - 07/01/2024 12:09 PM CDT Results greater than 1651 U/L may not be reliable due to matrix effect with extended dilution as it exceeds the alkylation operator's recommended limit. Caution should be exercised when interpreting such values and done in conjunction with clinical context. Yen Stoll APRN LAB BLOOD ORDERABLES Final Result [facility] Unless otherwise noted, all lab tests performed by: Division of Pathology and Laboratory Medicine [address] [place] [address] * Creatinine (07/01/2024 11:24 AM CDT) Creatinine 0.77 0.51 - 0.95 mg/dL 07/01/2024 12:14 PM CDT [facility] eGFR 101 >=60 mL/min/1.7 3 sq. m 07/01/2024 12:14 PM CDT [facility] Comment: The eGFRcr is calculated with the 2020 CKD-EPI creatinine equation using creatinine, patient's age, and sex for adults 18 years of age and older. Other factors, especially muscle mass, may affect accuracy and need to be considered. According to the Kidney Disease: Improving Global Outcomes (KDIGO) CKD Work Group 2012 Clinical Practice Guideline, chronic kidney disease (CKD) is defined as the abnormalities of kidney structure or function, present for more than 3 months, with implications for health. CKD should be classified by cause, GFR category, and albuminuria category. KDIGO guidelines provide the following GFR categories. Stage / Description / GFR mL/min/1.73 m2: G1* / Normal or high / >= 90 G2* / Mildly decreased / 60-89 G3a / Mildly to moderately decreased / 45-59 G3b / Moderately to severely decreased / 30-44 G4 / Severely decreased / 15-29 G5 / Kidney failure / <15 *In the absence of evidence of kidney damage, neither G1 nor G2 fulfill criteria for CKD. Blood Peripheral blood specimen / Unknown Venipuncture / Unknown 07/01/2024 11:24 AM CDT 07/01/2024 11:28 AM CDT Yen Stoll APRN LAB BLOOD ORDERABLES Final Result [facility] Unless otherwise noted, all lab tests performed by: Division of Pathology and Laboratory Medicine [address] [place] [address] * CEA Ag (07/01/2024 11:24 AM CDT) Pathologist [facility] Carcinoembryonic Antigen 1.0 <=3.8 ng/mL 07/01/2024 12:17 PM CDT [facility] Blood Peripheral blood specimen / Unknown Venipuncture / Unknown 07/01/2024 11:24 AM CDT 07/01/2024 11:28 AM CDT Narrative [facility] - 07/01/2024 12:17 PM CDT Reference Ranges (age 20-69 years): Non-smoker: <= 3.8 ng/mL Smoker: <= 5.5 ng/mL This test is measured by electrochemiluminescence immunoassay on [employer] immunoassay analyzers. Results obtained in different methods are not interchangeable. Yen Stoll APRN LAB BLOOD ORDERABLES Final Result [facility] Unless otherwise noted, all lab tests performed by: Division of Pathology and Laboratory Medicine [address] [place] [id number] * Calcium Level (07/01/2024 11:24 AM CDT) [facility] Calcium Level Total 9.7 8.2 - 10.2 mg/dL 07/01/2024 12:14 PM CDT [facility] Blood Peripheral blood specimen / Unknown Venipuncture / Unknown 07/01/2024 11:24 AM CDT 07/01/2024 11:28 AM CDT Yen Stoll APRN LAB BLOOD ORDERABLES Final Result [facility] Unless otherwise noted, all lab tests performed by: Division of Pathology and Laboratory Medicine [address] [place] [phone] * Beta 2 Microglobulin (07/01/2024 11:24 AM CDT) [facility] Beta 2 Microglobulin 1.50 0.80 - 2.30 mg/L 07/01/2024 2:33 PM CDT [facility] Blood Peripheral blood specimen / Unknown Venipuncture / Unknown 07/01/2024 11:24 AM CDT 07/01/2024 11:28 AM CDT Narrative [facility] - 07/01/2024 2:33 PM CDT This test is measured by turbidimetric methodology on [facility] Optilite analyzer. Results obtained in different methods are not interchangeable. Yen Stoll APRN LAB BLOOD ORDERABLES Final Result [facility] Unless otherwise noted, all lab tests performed by: Division of Pathology and Laboratory Medicine [address] [place] [phone] * Electrolyte Panel (07/01/2024 11:24 AM CDT) Sodium Level 138 136 - 145 mmol/L 07/01/2024 12:14 PM CDT [facility] Potassium Level 3.6 3.4 - 4.5 mmol/L 07/01/2024 12:14 PM CDT [facility] Chloride 104 98 - 107 mmol/L 07/01/2024 12:14 PM CDT [facility] CO2 24 22 - 29 mmol/L 07/01/2024 12:14 PM CDT [facility] Anion Gap 10 4 - 14 mmol/L 07/01/2024 12:14 PM CDT [facility] Blood Peripheral blood specimen / Unknown Venipuncture / Unknown 07/01/2024 11:24 AM CDT 07/01/2024 11:28 AM CDT Yen Stoll APRN LAB BLOOD ORDERABLES Final Result Performing Organization Address City/[facility]/ZIP Co de Phone Number [facility] Unless otherwise noted, all lab tests performed by: Division of Pathology and Laboratory Medicine [address] [place] [address] [phone] * EKG, 12-Lead (Scheduled) (07/01/2024) us Yen Stoll ACTUARIAL ANALYST ECG ORDERABLES Final Resu lt DIANE IECG * OSI CT Abdomen and Pelvis (06/23/2024 8:56 PM CDT) Narrative Systemgenerated, Documentation - 06/29/2024 8:56 PM CDT Study acquired at another institution. For comparison only. No MD Nath originated interpretation requested or available. us Jordana Mosher MD IMG OUTSIDE IMAGE ORDERABLES F inal Result after 01/26/2024 Insurance BCBS PPO POS OUT OF STATE GENERIC BCBS PPO POS OUT OF STATE GENERIC Care Teams Hand Clipper Relationship Specialty Start Date End Date Radha Chaparro MD [address] [place] [address] PCP - External Primary Care Provider 06/25/24 Jordana Mosher MD [address] [place] [id number] [email or web address] PCP - General Internal Medicine 06/28/24
== END 2025-01-25 20:23 | disposition home or self-care (01) ==
LOC: ER 17:39
DX: B34.9 Viral infection, unspecified (principal)
CPT/HCPCS: 70450